=== PATIENT | male | born 1970 | race Caucasian/White ===

== ENCOUNTER 2016-10-17 22:45 | Emergency (ER) | payer MEDICARE ==
--- NOTE | 2016-10-17 23:14 | ERNOTE ---
Medical Problem HPI - General Chief Complaint: Fever Time Seen by Provider: 10/17/16 23:02 Source: patient Exam Limitations: no limitations - Immun/Allergies/Home Medications Immunizations: IMMUNIZATION HX Immunizations Up to Date Yes History of Influenza Vaccine Yes Hx Pneumococcal Vaccination No Allergies/Adverse Reactions: Allergies levetiracetam [From Keppra] Allergy (Severe, Verified 06/15/12 17:13) Hives hydrocodone bitartrate [From Vicodin] Allergy (Unknown, Verified 06/15/12 17:13) Other Pt states "rigidity of hands." Home Medications: HOME MEDICATIONS Citalopram Hydrobromide [Celexa] 40 mg PO DAILY 06/15/12 [Last Taken Unknown] Mirtazapine [Remeron] 30 mg PO DAILY 06/15/12 [Last Taken Unknown] Buspirone HCl 30 mg PO BID 10/17/16 [Last Taken Unknown] Sertraline HCl [Zoloft] 25 mg PO HS 10/17/16 [Last Taken Unknown] - History of Present History Narrative: Pt began to have chills and diaphoresis at around 17:00 tonight. He checked his BP and it was over 200 systolic. He checked his temp and he was afebrile. Timing: constant Severity: moderate Review of Systems - Review of Systems Constitutional: Present: See HPI. Absent: recent illness EYE: Present: no symptoms reported ENT: Absent: nose congestion, nasal drainage Respiratory: Absent: shortness of breath, cough Cardiology: Absent: chest pain, palpitations Gastrointestinal/Abdominal: Present: eating less. Absent: nausea, vomiting Genitourinary: Absent: frequency, pain, dysuria Musculoskeletal: Absent: back pain, muscle pain Skin: Absent: rash Neurological: Absent: numbness, tingling Endocrine: Present: excessive sweating, intolerance to heat, intolerance to cold Hematologic/Lymphatic: Present: no symptoms reported Psych: Present: no symptoms reported - Patient's Past Medical History Patient History - Medical: Anxiety, Depression, GERD, Headache, Seizures Patient History - Cardiac/Respiratory: Hyperlipidemia Patient History - Cancer: No Hx of Cancer, Lymphoma Patient History - Surgical Procedures: Other Patient History - Other: None - Social History Living Situations: home Abuse History: Hx of Substance Use Psych History: Hx of Anxiety, Hx of Depression Smoking Status: Former smoker Have you smoked in the past 12 months: No Do you dip or chew tobacco: No Alcohol Use: none Drug Use: none - Immunizations Immunizations Up to Date: Yes Hx Pneumococcal Vaccination: No History of Influenza Vaccine: Yes Physical Exam - Physical Exam General Appearance: Present: wd/wn, alert, no apparent distress Head Exam: Present: normal inspection, no evidence of injury Eye Exam: Normal inspection: bilateral, PERRL: bilateral, EOMI: bilateral Ears, Nose, Throat: Present: normal ENT inspection, normal pharynx Neck: Present: normal inspection, nontender Respiratory: Present: no respiratory distress, normal breath sounds, wheezing - low intermittant right lung Cardiovascular/Chest: Present: regular rate, rhythm, no murmur, normal peripheral pulses Gastrointestinal/Abdominal: Present: normal bowel sounds, nontender Extremity Exam: Present: normal inspection, normal range of motion, no edema Neurological Exam: Present: alert, oriented, normal mood/affect Skin Exam: Present: normal color, warm/dry Lymphatic Exam: Present: no adenopathy ED Progress - Results and Orders Patient's Lab Results:: I have reviewed the patient's lab results. Results and Orders: Laboratory Tests 10/17/16 10/17/16 10/17/16 23:15 23:15 23:15 WBC 10.3 Hgb 14.5 Hct 41.0 L Plt Count 316 Neutrophils % 82.7 H Lymphocytes % 9.0 L Sodium 142 Potassium 3.5 Chloride 104 Carbon Dioxide 25.8 Anion Gap 15.7 H BUN 14 Creatinine 1.09 Est GFR (Non-Af Amer) 77 Random Glucose 152 H Lactic Acid, Venous 1.6 Calcium 9.3 Total Bilirubin 0.4 AST 9 ALT 17 L Alkaline Phosphatase 61 Troponin I Less than 0.017 B-Natriuretic Peptide 159 H Total Protein 7.3 Albumin 4.0 - Vital Signs Vital Signs: Vital Signs 10/17/16 22:48 Temperature 35.9 C L Pulse Rate 97 Respiratory 20 Rate Blood Pressure 158/91 O2 Sat by Pulse 99 Oximetry - X-Ray X-Ray #1 X-Ray: chest Interpretation: Interp. by sd X-ray Comments: No infiltrate or effusion, no pneumothorax or mass. - Progress/Reassessment Chief Complaint: Fever Departure - Departure Clinical Impression: Chills without fever Disposition: Home Follow Up Needed Condition: Good Additional Instructions: Watch for a tempurature over 101 degrees. Drink plenty of fluids. Return to the ER if your symptoms worsen especially if you have fever that will not come down or are confused or disoriented. See your regular doctor next week for follow up. Referrals: Elijah Michele DO [Primary Care Provider] -
[2016-10-17 23:32] LABS: Hemoglobin 14.5 gm/dL (13.5-18.0); Mean Cell Volume 86.1 fl (78-100); Mean Corpuscular Hemoglobin 30.5 pg (27-31); Mean Corpuscular Hgb Conc 35.4 g/dl (32-36); Red Blood Count 4.76 M/mm3 (4.7-6.0); White Blood Count 10.3 K/mm3 (4.0-10.5)
[2016-10-17 23:33] LABS: Mean Platelet Volume 8.4 fl (6.0-9.5); Neutrophil # 8.6 K/mm3 (1.3-6.0); Neutrophil % 82.7 % (42-75.0); Platelet Count 316 K/mm3 (150-450); Red Cell Distribution Width 12.2 % (11.5-14.0)
[2016-10-17 23:56] LABS: ALT 17 U/L (19-67); AST 9 U/L (0-48); Alkaline Phosphatase * 61 U/L (50-170); Anion Gap 15.7 mmol/L (6.8-13.8); BNP * 159 pg/mL (5-140); BUN/Creatinine Ratio 12.8 (9.0-21.6); Bilirubin, Total 0.4 mg/dL (0.0-1.1); Blood Urea Nitrogen 14 mg/dL (6-23); Calcium * 9.3 mg/dL (7.9-10.9); Carbon Dioxide 25.8 mmol/L (24-32.6); Chloride 104 mmol/L (97-106); Glucose * 152 mg/dL (70-110); Potassium 3.5 mmol/L (3.4-4.6); Sodium 142 mmol/L (132-142); Total Protein 7.3 gm/dL (6.2-8.2)
[2016-10-17 23:59] LABS: Troponin I Less than 0.017 ng/ml (0.00-0.10)
[2016-10-18 01:12] LABS: Urine Bilirubin Negative (NEGATIVE); Urine Blood Negative /ul (NEGATIVE); Urine Ketone Negative (NEGATIVE); Urine Nitrite Negative (NEGATIVE); Urine Protein Negative (NEGATIVE); Urine Specific Gravity 1.025 SP.GR. (1.005-1.030); Urine Urobilinogen Normal (NORMAL); Urine pH 6.5 pH (5.0-7.0)
[2016-10-18 01:20] LABS: Urine Amorphous Sediment Moderate - 2+ (NONE-FEW); Urine Appearance Clear; Urine Bacteria None Seen; Urine Color Dark Yellow; Urine Mucus Moderate - 2+; Urine RBC 0-5 /hpf (0-5); Urine WBC 0-5 /hpf (0-5)
[2016-10-18 03:07] VITALS: BP 136/80
== END 2016-10-18 01:45 | disposition home or self-care (01) ==
LOC: ER 22:45
DX: R50.9 Fever, unspecified (principal); Z85.72 Personal history of non-Hodgkin lymphomas